=== PATIENT | male | born 1975 | race Caucasian/White ===

== ENCOUNTER 2020-02-16 07:49 | Outpatient (CLI) | payer OTHER, SELFPAY ==
[2020-02-18 10:52] LABS: SARS-CoV-2 RNA Not Detected (NotDetected); SARS-CoV-2 RNA Source Nasal/Nares
== END 2020-02-16 08:09 ==
PROVIDERS: PCP Family Medicine; Visit Provider Family Medicine
DX: Z11.59 Encounter for screening for other viral diseases (principal); Z01.811 Encounter for preprocedural respiratory examination
CPT/HCPCS: U0003

== ENCOUNTER 2020-02-19 02:32 | Outpatient (CLI) | payer OTHER, SELFPAY ==
[2020-02-19] MEDS: Albuterol HFA 18 GM 200 PUFF INH IH (08:52)
[2020-02-19] MEDS: Inhaler, Assist Device 1 EACH MC (08:52)
--- NOTE | 2020-02-22 18:23 | W.PFT ---
Date of service: 02/19/20 Time of Service: 08:01 Pulmonary Function Test Result Interpretation Spirometry: Mild obstructive airways disease, significant bronchodilator response Impression Mild obstructive airways disease with significant bronchodilator response Clinical Correlation therefore is recommended.
== END 2020-02-19 02:52 ==
PROVIDERS: PCP Family Medicine; Visit Provider Family Medicine
CPT/HCPCS: 94060

== ENCOUNTER 2021-12-22 04:02 | Outpatient (CLI) | payer OTHER, SELFPAY ==
[2021-12-22 16:51] LABS: Calculated LDL 153 mg/dL (<100); Cholesterol 224 mg/dL (<200); HDL Cholesterol 59 mg/dL (40-60); Triglyceride 64 mg/dL (<150)
[2021-12-22 16:53] LABS: Hemoglobin A1C 5.7 % (<5.7)
== END 2021-12-22 04:03 | disposition home or self-care (01) ==
LOC: LBO 04:03
PROVIDERS: Nurse Practitioner Family; PCP Family Medicine; Visit Provider Family Medicine
DX: Z13.220 Encounter for screening for lipoid disorders (principal); Z13.1 Encounter for screening for diabetes mellitus
CPT/HCPCS: 36415; 80061; 83036

== ENCOUNTER 2022-10-12 10:39 | Day surgery (SDC) | payer OTHER, SELFPAY ==
--- NOTE | 2022-10-11 19:28 | W.PM.DSUDISC ---
Date of service: 10/12/22 Time of Service: 12:07 Discharge Plan Disposition Patient Disposition: Home Condition: Good Discharge Details Reason For Visit: Screening colonoscopy Attending Provider: Jim Ulloa Primary Care Provider: Nilda Polanco Home Meds and New Rx's Prescriptions: Continued (DME) Aerochamber MV Spacer See Rx Instructions .ROUTE .MEDSUPPLY Qty: 1 0RF Rx Instructions: As directed albuterol sulfate [Ventolin HFA] 90 mcg/actuation HFA aerosol inhaler 2 puff inhalation Q4H PRN (Reason: shortness of breath or wheezing) Qty: 8.5 0RF Discontinued bisacodyl [Dulcolax (bisacodyl)] 5 mg tablet,delayed release (DR/EC) 5 mg PO ONCE Qty: 4 0RF Rx Instructions: Take per colonoscopy instructions provided by ordering providers office polyethylene glycol 3350 17 gram/dose powder 17 g PO ONCE Qty: 238 0RF Rx Instructions: Take per colonoscopy instructions provided by ordering providers office Discharge Instructions Additional Instructions: Darnell, We were able to complete your colonoscopy today without any difficulty. The quality of your prep was excellent. I was able to see everything just fine. I did not see any polyps, or anything out of the ordinary. I recommend another colonoscopy in 10 years 1. If tolerated, consume a soft, low fiber diet for 1-2 days. 2[address] Do not drive, drink alcohol, operate machinery, make critical decisions, or do activities that require coordination or balance for 24 hours. 3. Because air was put into your colon during the procedure, expelling air from your rectum (passing gas or farting) is normal. 4. You may not have a bowel movement for 1-3 days because of the colonoscopy prep. This is normal. 5. Go directly to the emergency room if you notice any of the following: Develop chills (warm to touch), or if you have a thermometer and your temperature is above 101 Difficulty breathing or difficultly swallowing Persistent vomiting Severe abdominal pain, other than gas cramps Severe chest pain Black, tarry stools Any bleeding ? exceeding one tablespoon 6. Call your physician if the site where your intravenous was started becomes red, swollen, painful, and warm to touch. 7. Your physician has reviewed your pre-procedure medications. Please continue to take those medications as previously ordered. You will be given specific information/education regarding any changes to your medications before leaving. Activity:: Activity as Tolerated Diet:: As Tolerated Discharge Orders Discharge Orders: Discharge Order (Routine); Ordered 10/11/22 Ordered By: Jim Ulloa DS: Diagnosis Discharge Diagnosis (1) Screen for colon cancer: Status: Acute Asessment and Plan: Negative screening colonoscopy. Recommend follow-up colonoscopy in 10 years
--- NOTE | 2022-10-11 19:30 | W.COLOREPORT ---
Date of service: 10/12/22 Time of Service: 12:09 Colonoscopy Report Date of procedure: 10/12/22 Pre-op diagnosis general: Screening colonoscopy Post-op diagnosis procedure note: other (Negative screening colonoscopy) Procedure: colonoscopy Surgeon: Jim Ulloa Anesthesia Type: General:No Airway Estimated blood loss (mL): 0 Pathology: none sent Complications: None Disposition: same day Indications: Darnell is 47 years old. He needs a screening colonoscopy Prep: Miralax/Dulcolax Procedure Start Time: 11:40 Procedure End Time: 11:56 Retraction Time: 12 Findings: Negative screening colonoscopy Procedure Description: After the induction of monitored anesthetic care, and with the patient in left lateral decubitus position, I began by performing an external anorectal exam.? Perineum and skin were normal, as was the anal verge.? There was no evidence of external hemorrhoids.? Next, I performed a digital rectal exam.? I did not appreciate any abnormal findings.? Next, I advanced a colonoscope into the rectal vault.? I performed retroflexion.? This was normal.? Using insufflation, I then advanced the colonoscope beyond the rectal folds and into the sigmoid colon before advancing towards the cecum.? The quality of the prep was excellent.? The scope was noted to be in the cecum by identification of the ileocecal valve and appendiceal orifice.? I then began withdrawing the colonoscope using repeated irrigation as necessary for full evaluation of the colonic mucosa. ?Once the scope was withdrawn to the level of the rectum, great care was taken to examine portions of the rectal folds.? I did not see any signs of any colon pathology. Finally, the scope was withdrawn and the patient was brought to the same-day surgery recovery unit as the anesthetic wore off. ?The findings and instructions were shared with the patient prior to discharge.
[2022-10-12 10:53] VITALS: BP 128/98; PULSE 67; RESP 16; TEMP 36.2; O2SAT 96
[2022-10-12] MEDS: Lactated Ringers 1,000 ML 80 ML IV (11:19)
--- NOTE | 2022-10-12 11:25 | W.ANESPRE ---
General Info Date of Service Date Performed: 10/12/22 Height: 6 ft 2 in Weight: 114.6 kg Body Mass Index (BMI): 32.4 Surgical Procedure: Operation Date: 10/12/22 11:50 Proposed Procedure Side Surgeon p Lowell Ulloa MD Meds Allergies and Home Medications Allergies Allergy/AdvReac Type Severity Reaction Status Date / Time latex Allergy Unknown Verified 10/12/22 10:52 Home Medication Medication Instructions Recorded inhalational spacing device #1 ea 04/13/20 (Aerochamber MV spacer) albuterol sulfate 90 mcg/actuation 2 puff inhalation Q4H PRN 02/23/21 aerosol inhaler (Ventolin HFA) shortness of breath or wheezing #8.5 grams Current Visit Medications: Current Medications Generic Name Dose Route Start Last Admin Trade Name Freq PRN Reason Stop Dose Admin Hyoscyamine Sulfate 0.125 mg 10/11/22 19:31 Hyoscyamine 0.125 Mg Sl/Oral/Chew SL 11/10/22 19:30 DIRECTED PRN Ringer's Solution 1,000 mls @ 80 mls/hr 10/12/22 06:00 10/12/22 11:19 IV 10/12/22 23:59 80 mls/hr INFUSION BROOKS Administration IV Miscellaneous Supplies 1 each 10/12/22 06:00 Iv Access IV 10/12/22 23:59 DIRECTED BROOKS Ondansetron HCl 4 mg 10/11/22 19:31 Ondansetron 4 Mg/2 Ml Vial IVP 11/10/22 19:30 Q4H PRN PRN Nausea / Vomiting Sodium Chloride 0 ml 10/12/22 06:00 Normal Saline Flush 10 Ml Syr IV 10/12/22 23:59 PRN PRN Sodium Chloride 0 ml 10/12/22 06:00 Normal Saline 10 Ml Vial IJ 10/12/22 23:59 DIRECTED PRN Sterile Water 0 ml 10/12/22 06:00 Water,Injection,Sterile 10 Ml Vial IJ 10/12/22 23:59 DIRECTED PRN PFSH Active Problems Active Problems: Problem Status Onset Code Screen for colon cancer Z12.11 Obesity (BMI 30.0-34.9) E66.9 Asthma J45.909 Family history of coronary artery disease in father 10/12/17 Z82.49 Family history of lung cancer 10/12/17 Z80.1 History of smoking 10-25 pack years 10/12/17 Z87.891 Surgical History Surgical History Repair of inguinal hernia age 2 left repair Tobacco Smoking/Tobacco Use Status: Former Tobacco Use Alcohol Alcohol Intake: current Alcohol intake frequency: 0-2 drinks per day Substance Use Substance use: Never Substance use type: does not use Vital Signs and Lab Results Vital Signs Most Recent Vital Signs in EMR: Most Recent Vital Signs Temp Pulse Resp BP Pulse Ox 36.2 C L 67 16 128/98 H 96 10/12/22 10:53 10/12/22 10:53 10/12/22 10:53 10/12/22 10:53 10/12/22 10:53 Lab Results Blood Type / Crossmatch: No Data to Display Complete Blood Count: No Data to Display Complete Metabolic Panel: No Data to Display Liver Function Panel: No Data to Display Coagulation Panel: No Data to Display Cardiac Panel: No Data to Display Arterial Blood Gas: No Data to Display Venous Blood Gas: No Data to Display Pancreas Panel: No Data to Display Thyroid Panel: No Data to Display Infectious Disease: No Data to Display Blood Cultures: No Data to Display Toxicology Panel: No Data to Display Imaging and Studies Imaging and Studies Study information below may be from another EMR and interpreted by another provider. Please see original notes in EMR for more complete details. Pulmonary Function Summary: Date of service: 02/19/20 Time of Service: 08:01 Pulmonary Function Test Result Interpretation Spirometry: Mild obstructive airways disease, significant bronchodilator response Impression Mild obstructive airways disease with significant bronchodilator response Clinical Correlation therefore is recommended. Anesthesia Assessment and Plan Anesthesia History Personal History: No History of Anesthesia Complications Family History: No Family History of Anesthesia Complications Exercise Tolerance Exercise Tolerance: Metabolic Equivalents>4 Pertinent Negatives Pertinent Negatives: No Symptoms of GERD and No Major Cardiovascular Symptoms or Complaints Cardiac & Pulmonary Exam Cardiac Exam: Normal S1/S2 Heart Sounds Pulmonary Exam: Clear Bilateral Breath Sounds Implantable Cardiac Device Does patient have a Pacemaker or an ICD?: No Airway Exam Known Difficult Airway: No Mallampati Class: 2 Mouth Opening: Normal (> 3cm) Thyromental Distance: Less than 3 cm Facial Hair: Full Ferrari Neck Range of Motion: Full ROM Neck Circumference: Normal Teeth Condition: Normal Dentition ASA Classification ASA Score: ASA 2 Emergency Case?: No NPO Status NPO Status: NPO Clears >2 hours, Solids >8 hours Anesthesia Plan Resuscitation Status: Full Code Anesthesia Technique: General Anesthesia Airway Planned: Natural Airway Monitors Used: Standard Monitors
[2022-10-12 11:28] VITALS: BMI 32.4
[2022-10-12 12:06] VITALS: BP 134/93; PULSE 58; RESP 20; TEMP 36.3; O2SAT 95
--- NOTE | 2022-10-12 12:20 | W.ANESPOSTOP ---
Postoperative Evaluation Date, Time and Location Date Performed: 10/12/22 Time Performed: 12:20 Patient Location: Day Surgery Unit Vital Signs Most Recent Imported Vital Signs: Most Recent Vital Signs Temp Pulse Resp BP Pulse Ox 36.3 C L 58 L 20 134/93 H 95 10/12/22 12:06 10/12/22 12:06 10/12/22 12:06 10/12/22 12:06 10/12/22 12:06 Pain Score Most Recent Pain Score: Most Recent Pain Score Pain Level 0 10/12/22 12:06 Assessment Mental Status: Awake (Alert & Oriented to Patient Baseline) Airway and Respiratory Function: Patent airway with normal (patient baseline) respiratory exam Cardiovascular Function: Hemodynamically Stable Hydration Status: Adequately Hydrated Nausea & Vomiting: No Nausea or Vomiting Pain: Pt. Denies Any Pain Peripheral Nerve Block: Patient did not receive a nerve block
[2022-10-12 12:35] VITALS: PULSE 53; RESP 20; TEMP 36.2; O2SAT 96
== END 2022-10-12 13:07 | disposition home or self-care (01) ==
PROVIDERS: PCP Family Medicine; Visit Provider Surgery
PROC: 0DJD8ZZ Inspection of Lower Intestinal Tract, Via Natural or Artificial Opening Endoscopic (ICD-10-PCS; CPT 45378; principal; 2022-10-12 11:45)
DX: Z12.11 Encounter for screening for malignant neoplasm of colon (principal)
CPT/HCPCS: 45378; J2704

== ENCOUNTER 2023-06-13 14:59 | Outpatient (CLI) | payer OTHER, SELFPAY ==
--- NOTE | 2023-06-13 14:45 | RT.EKG_ITS ---
APPROVED REPORT Exam: Resting ECG Reason for Exam: chest discomfort Patient Location: O HR:68 bpm ECG Measurements Heart Rate 68 AXIS NV 144 P 13 QRSd 93 QRS 54 QT 393 T 18 QTc 418 Conclusion Sinus rhythm...normal P axis, V-rate 50- 99 Normal Electrocardiogram
== END 2023-06-13 15:00 | disposition home or self-care (01) ==
LOC: DI.CM 15:00
PROVIDERS: PCP Nurse Practitioner Family; Visit Provider Nurse Practitioner Family
DX: R07.89 Other chest pain (principal)
CPT/HCPCS: 93010

== ENCOUNTER 2023-06-13 15:29 | Emergency (ER) | payer OTHER, SELFPAY ==
[2023-06-13] VITALS (30 sets, daily range): BP systolic 149–170; BP diastolic 81–92; PULSE 59–81; RESP 13–24; O2SAT 98–99
--- NOTE | 2023-06-13 15:30 | DI.RAD_ITS ---
Exam(s) XR CHEST 2V PA LATERAL EXAM: XR CHEST 2V PA LATERAL CLINICAL HISTORY: CP. TECHNIQUE: 2D digital imaging was performed. COMPARISON: CR CHEST 2 VIEWS PA,LAT from 12/04/2013 FINDINGS: 2 views: Heart size is normal. The mediastinum is not widened. Lungs are clear. No infiltrates nor pleural effusions. IMPRESSION: No acute pulmonary findings. DATA REPOSITORY: RADIATION DOSE DELIVERED:
--- NOTE | 2023-06-13 15:30 | RT.EKG_ITS ---
APPROVED REPORT Exam: Resting ECG Reason for Exam: Chest Pain Patient Location: E HR:74 bpm ECG Measurements Heart Rate 74 AXIS FL 145 P 20 QRSd 97 QRS 43 QT 374 T 8 QTc 416 Conclusion Sinus rhythm...normal P axis, V-rate 60- 99 Normal Colome Normal Electrocardiogram
--- NOTE | 2023-06-13 15:31 | ED.GENADUL_ITS ---
Discharge Plan Disposition Patient Disposition: Home Condition: Good Discharge Details Clinical Impression: Atypical chest pain Primary Care Provider: Boy Mejía ED Provider: Pablito Nye Meds and New Rx's Prescriptions: Continued (DME) Aerochamber MV Spacer See Rx Instructions .ROUTE .MEDSUPPLY Qty: 1 0RF Rx Instructions: As directed albuterol sulfate [Ventolin HFA] 90 mcg/actuation HFA aerosol inhaler 2 puff inhalation Q4H PRN (Reason: shortness of breath or wheezing) Qty: 8.5 0RF Discharge Instructions Instructions: Chest Pain (ED) Additional Instructions: You were seen in the ED for fleeting left-sided chest pain. Your exam, EKG, chest x-ray, laboratory studies are all very reassuring. Please follow-up with primary care for consideration of outpatient stress testing. Return to ED for any different or prolonged chest pain, shortness of breath, lightheadedness, neurochanges, other concerns. HPI General Mode of arrival: ambulatory . Date/Time Provider Initiated Documentation: 06/13/23 15:30 . Limitations to Documentation: no limitations . Information obtained by: patient . HPI Narrative: Patient sent to the ED from urgent care with chest pain that he describes as sharp and fleeting in nature. Began around 1 PM. Last for seconds when it oc curs. Does not radiate anywhere. Has no associated symptoms. He does not have history of hypertension, high cholesterol, diabetes. He has not smoked in over 15 years. Father does have coronary disease but occurred after age 55. No history of blood clots. No complaint of leg pain or leg swelling. Has not been ill recently. Pain is not pleuritic and is not reproducible. Related Data Home Medications Medication Instructions Recorded Confirmed inhalational spacing device #1 ea 04/13/20 06/13/23 (Aerochamber MV spacer) albuterol sulfate 90 mcg/actuation 2 puff inhalation Q4H PRN 02/23/21 06/13/23 aerosol inhaler (Ventolin HFA) shortness of breath or wheezing #8.5 grams Previous Rx's Medication Instructions Recorded inhalational spacing device #1 ea 04/13/20 (Aerochamber MV spacer) albuterol sulfate 90 mcg/actuation 2 puff inhalation Q4H PRN 02/23/21 aerosol inhaler (Ventolin HFA) shortness of breath or wheezing #8.5 grams Allergies Allergy/AdvReac Type Severity Reaction Status Date / Time latex Allergy Unknown Skin Rash Verified 06/13/23 15:39 Review of Systems Narrative: per HPI Exam Narrative Exam Narrative: Const: WDWN male in NAD. HEENT: NC/AT. Normal facial exam. Eyes: Normal conjunctiva and sclera. Neck: Supple. Trachea midline. Lungs: Normal respiratory effort. Lungs are clear. No chest wall tenderness. Cor: RRR without murmur/gallop. Good radial pulses. GI: Soft. NT/ND. No guarding or rebound Neuro: A+O x 3. Normal speech, mentation, gait. Cranial nerves II - XII grossly intact. No gross motor or sensory deficit. Ext: No C/C/E. No calf tenderness. Skin: Warm and dry without rash. Medical Decision Making Patient presenting to ED with fleeting, sharp left upper chest pain. Pain does not radiate anywhere. There are no associated symptoms. He has no significant risk factors and stopped smoking over 15 years ago. Father does have coronary disease but developed it after age 55. His EKG is normal. He received aspirin at the urgent care. Will obtain laboratory studies including delta troponin as well as chest x-ray. He PERCs out for PE and does not require D-dimer or CT. Laboratory studies are all normal. Troponins are flat. Chest x-ray per my read with no acute cardiopulmonary process. Patient has been asymptomatic in the ED. He is low risk by HEART as well as EDACS. Will plan discharge home to follow- up with primary care as outpatient. Return precautions provided. Lab Data Lab results reviewed: Yes I reviewed the patient's lab results. ECG Data Attestation: I personally reviewed and interpreted this ECG (s) as follows: Prior ECG tracings: not available for review Interpretation: Normal EKG Quality:SDOH Health Related Social Needs: No Data to Display PFSH All Active Problems Atypical chest pain (Acute) Screen for colon cancer (Acute) Obesity (BMI 30.0-34.9) (Acute) Family history of coronary artery disease in father (Acute 10/12/17) father in late 50's/early 60's. Family history of lung cancer (Acute 10/12/17) mother. smoker. History of smoking 10-25 pack years (Acute 10/12/17) Medical History (Updated 06/13/23 @ 19:18 by Pablito Nye MD) Asthma Surgical History History of colonoscopy (~10/2022) Repair of inguinal hernia age 2 left repair Family History Mother Personal history of malignant neoplasm lung Father Essential hypertension Heart disease Brother No problems noted. Grandfather Essential hypertension Personal history of malignant neoplasm PROSTATE Grandfather No problems noted. Grandmother No problems noted. Grandmother No problems noted. Social History Smoking/Tobacco Use Status: Former Tobacco Use Quit Date: 04/09/09 Smoking risk assessment performed?: Yes Alcohol Intake: current Alcohol Intake frequency: 0-2 drinks per day Drug use: Never Substance use type: does not use Caregiver/Support person: No Household members: spouse Housing: house Communication Needs: None Do you need help understanding health information?: Rarely Pets and animals: Yes Pets and animals: dog(s) Do you think of yourself as: straight/heterosexual Current gender identity: male What is your relationship status?: How often do you talk on the phone with friends or family?: three or more times per week How often do you get together with friends or relatives?: three or more times per week Do you belong to any clubs or organized social groups?: yes Panel score (0-1 are the most socially isolated patients): 3 Jennifer/Protestant: No preference Special jennifer needs: No Do you feel safe at home: Yes Do you feel safe in your relationship?: Yes
[2023-06-13 15:56] LABS: Abs Immature Grans 0.02 10^3/uL (0.0-0.06); Absolute Basophil Count 0.08 10^3/uL (0.0-0.2); Absolute Eosinophil Count 0.19 10^3/uL (0.0-0.7); Absolute Monocyte Count 0.63 10^3/uL (0.1-0.8); Basophils % 1.3; HCT 46.4 % (40.0-50.0); HGB 15.7 g/dL (13.5-17.5); Immature Grans % 0.3; Lymphocytes % 30.1; MCH 29.5 pg (27.0-33.0); MCHC 33.8 % (32.0-36.0); MCV 87 fL (80-95); MPV 8.6 fL (8.0-11.0); Neutrophils % 55.3; Platelet Count 269 10^3/uL (130-400); RBC 5.33 10^6/uL (4.36-5.78); RDW 12.7 % (11.8-14.1); RDW-SD 40.4 fL; WBC 6.32 10^3/uL (4.4-10.8)
[2023-06-13 16:14] LABS: ALT 40 U/L (16-63); AST 22 U/L (15-37); Albumin 4.1 g/dL (3.4-5.0); Alkaline Phosphatase 98 U/L (46-116); Anion Gap 10.8 mmol/L (3-11); BUN 14 mg/dL (7-18); Bilirubin, Total 0.4 mg/dL (0.2-1.0); CO2 27.2 mmol/L (21.0-32.0); CREATININE 1.1 mg/dL (0.70-1.30); Calcium 8.9 mg/dL (8.5-10.1); Chloride 103 mmol/L (98-107); Estimated GFR 82.81 (mL/min/1.73m2); Glucose 104 mg/dL (74-106); Sodium 141 mmol/L (136-145); Total Protein 7.6 g/dL (6.4-8.2); Troponin I < 50 ng/L (< or =60)
[2023-06-13 19:13] LABS: Troponin I < 50 ng/L (< or =60)
== END 2023-06-13 19:30 | disposition home or self-care (01) ==
PROVIDERS: Emergency Provider Emergency Medicine; PCP Nurse Practitioner Family
DX: R07.89 Other chest pain (principal); Z87.891 Personal history of nicotine dependence
CPT/HCPCS: 80053; 93005; 99285; 71046; 83735; 84484; 85025; 93010; 99284

== ENCOUNTER → 2023-06-18 00:18 | Outpatient (CLI) | payer OTHER, SELFPAY ==
--- NOTE | 2023-06-18 06:30 | ETT_ITS ---
APPROVED REPORT Exam: Exercise Treadmill Patient Location: Out-Patient Room/Bed: Stress Nurse: Amparo Santillan RN Ordering Provider:DADA SKELTON, Contact Number: [phone] BMI: 31.96 Baseline Rhythm: PVC's Indications: chest pain Medical History Medical History: atypical chest pain, former smoker, asthma, obesity Cardiac Medications: albuterol sulfate Allergies: Latex Cardiac Risk Factors: Family Hx, Former smoker, asthma, obesity Previous Cardiac Procedures: None Pretest Chest Pain Characteristics: None Exercise History: Indeterminate Physical Disabilities: None Lung Sounds: Clear to auscultation Heart Sounds: Regular Stress Test Details Test: Exercise stress testing was performed using a Esteban protocol. Rest Stress HR Resting HR Supine: 56 bpm Max Heart Rate (APMHR): 172 bpm Resting HR Standin bpm Target HR (85% APMHR): 146 bpm Max HR Achieved: 150 bpm % of APMHR: 87 Recovery HR: 79 bpm HR response to stress: Normal HR response to stress BP Resting BP Supine: 142/96 mmHg Resting BP Standin/88 mmHg Max BP: 218/62 mmHg Recovery BP: 146/88 mmHg BP response to stress: Normal blood pressure response to stress. ECG Resting ECG: Sinus Rhythm Ectopy: none Stress ECG: Sinus Tachycardia ST Change: No significant ST segment changes noted Arrhythmia: None Recovery ECG: Sinus Rhythm Recovery ST Change: No significant ST segment changes noted Recovery Arrhythmia: None Clinical Reason for Termination: Fatigue Stress Symptoms: None Exercise duration: 8 min35 sec Highest Stage Reached: Stage 3: 3.4 mph at 14% grade. Exercise capacity: 10.16 METs Angina Score: None Wilson Treadmill Score: 8 Rate Pressure Product: [id number] Stress ECG Conclusion 1. Resting EKG was normal 2. Patient exercised on the Esteban protocol and completed a workload of 10.16 METS 3. Normal heart rate and blood pressure response to exercise. Patient achieved 87% of predicted hear t rate for age 4. There was no electrocardiographic evidence of myocardial ischemia 5. There were no dysrhythmias Wilson Treadmill Score is 8 which is Low risk. Stress Test Summary STAGE Time (mins) Speed (mph) Grade (%) HR BP SpO2 SYMPTOMS METS Supine 56 142/96 Standing 61 136/88 1 3 1.7 10 94 162/92 4.5 2 6 2.5 12 113 166/92 7 1 min recovery 109 218/62 3 min recovery 88 154/82 6 min recovery 79 146/88
== END ==
PROVIDERS: PCP Nurse Practitioner Family; Visit Provider Nurse Practitioner Family
DX: R07.9 Chest pain, unspecified (principal)
CPT/HCPCS: 93017

== ENCOUNTER 2024-01-22 02:25 | Outpatient (CLI) | payer OTHER, SELFPAY ==
[2024-01-22 09:40] LABS: Hemoglobin A1C 5.6 % (<5.7)
[2024-01-22 09:41] LABS: Calculated LDL 148 mg/dL (<100); Cholesterol 245 mg/dL (<200); HDL Cholesterol 63 mg/dL (40-60); Triglyceride 172 mg/dL (<150)
== END 2024-01-22 02:26 | disposition home or self-care (01) ==
PROVIDERS: PCP Nurse Practitioner Family; Visit Provider Nurse Practitioner Family
DX: Z13.220 Encounter for screening for lipoid disorders (principal); Z13.1 Encounter for screening for diabetes mellitus
CPT/HCPCS: 36415; 80061; 83036

== ENCOUNTER 2025-01-05 08:30 | Outpatient (CLI) | payer OTHER, SELFPAY ==
[2025-01-05 15:12] LABS: Calculated LDL 138 mg/dL (<100); Cholesterol 243 mg/dL (<200); HDL Cholesterol 57 mg/dL (>or=40); Triglyceride 242 mg/dL (<150)
[2025-01-05 15:31] LABS: Hemoglobin A1C 5.7 % (<5.7)
[2025-01-05 22:40] LABS: PSA, Screening 1.0 ng/mL (<=3.5)
== END 2025-01-05 08:31 | disposition home or self-care (01) ==
LOC: LOS 08:31
PROVIDERS: PCP Nurse Practitioner Family; Referring Provider Nurse Practitioner Family; Visit Provider Nurse Practitioner Family
DX: Z12.5 Encounter for screening for malignant neoplasm of prostate (principal); Z13.220 Encounter for screening for lipoid disorders; Z13.1 Encounter for screening for diabetes mellitus
CPT/HCPCS: 36415; 80061; 84153; 83036